=== PATIENT | male | born 1980 | race Two or more races ===

== ENCOUNTER 2024-06-25 11:44 | Emergency (ER) | payer OTHER ==
[~2024-06-25] VITALS: Ht 170.2 cm; Wt 90.7 kg
[2024-06-25 11:47] VITALS: TEMP 98
[2024-06-25] MEDS ORDERED: IPRATROPIUM NEB FS 0.5 MG/2.5 ML AMPUL.NEB ONE (11:52)
[2024-06-25] MEDS ORDERED: ALBUTEROL FS 2.5 MG/3 ML VIAL.NEB ONE (11:52)
[2024-06-25 11:57] VITALS: O2SAT 100
[2024-06-25] MEDS: IPRATROPIUM NEB FS 0.5 MG/2.5 ML AMPUL.NEB NEB ONE (11:57)
[2024-06-25] MEDS: ALBUTEROL FS 2.5 MG/3 ML VIAL.NEB NEB ONE (11:57)
[2024-06-25] MEDS ORDERED: Magnesium 1GM/D5W 100ML PREMIX 100 ML IV ONE (11:57)
[2024-06-25] MEDS: Magnesium 1GM/D5W 100ML PREMIX 200 ML IV ONE (12:00)
[2024-06-25] MEDS ORDERED: methylPREDNISolone SOD SUCC 125 MG/2ML VIAL IV ONE (12:00)
[2024-06-25] MEDS: IV NS 0.9% 1,000 ML BAG IV ONE ×2 (12:00→13:20)
[2024-06-25 12:08] LABS: BASOPHILS # (AUTO) 0.1 K/uL (0.0-0.2); BASOPHILS % (AUTO) 0.9 % (0.0-2.0); EOSINOPHILS # (AUTO) 0.4 K/uL (0.0-0.7); EOSINOPHILS % (AUTO) 4.7 % (0.0-6.0); HEMATOCRIT 45 % (39-51); HEMOGLOBIN 15.9 g/dL (13.5-17.5); LYMPHOCYTES % (AUTO) 34.4 % (20.0-44.0); MEAN CORPUSCULAR HEMOGLOBIN 32 PG (26.0-33.0); MEAN CORPUSCULAR HGB CONC 36 g/dl (31.0-36.0); MEAN CORPUSCULAR VOLUME 91 fL (80-96); MONOCYTES # (AUTO) 0.5 K/uL (0.1-1.30); MONOCYTES % (AUTO) 5.4 % (2.0-12.0); NEUTROPHILS # (AUTO) 4.7 K/uL (1.8-8.9); NEUTROPHILS % (AUTO) 54.6 % (43.0-81.0); PLATELET COUNT (AUTO) 249 K/uL (150-450); RED BLOOD CELL COUNT(AUTO) 4.92 MIL/uL (4.5-6.0); WHITE BLOOD COUNT (AUTO) 8.6 K/uL (4.3-11.0)
[2024-06-25] MEDS ORDERED: dexaMETHasone SOD PHOSPHATE 1 ML ONE (12:10)
[2024-06-25 12:12] VITALS: O2SAT 100
[2024-06-25] MEDS: dexaMETHasone SOD PHOSPHATE 4 MG/ML VIAL IV ONE (12:15)
[2024-06-25 12:23] LABS: CARBON DIOXIDE 23 mmol/L (21-32); CHLORIDE 104 mmol/L (98-107); GLUCOSE 136 mg/dL (74-106); POTASSIUM 3.6 mmol/L (3.5-5.1); SODIUM SERUM 138 mmol/L (136-145); UREA NITROGEN, BLOOD 9 mg/dL (7-18)
[2024-06-25 14:24] VITALS: BP 135/85; O2SAT 97
== END 2024-06-25 14:09 | disposition home or self-care (01) ==
LOC: ER 11:48
DX: J45.901 Unspecified asthma with (acute) exacerbation (principal); R06.02 Shortness of breath; R00.0 Tachycardia, unspecified; Z60.2 Problems related to living alone
CPT/HCPCS: 99285; 96365; 71045; 96366; 96375; 93005; 85025; 80048; 36415; 84484; 94640; J1100; J7030; J3475